=== PATIENT | male | born 1960 | race African-American/Black ===

== ENCOUNTER 2023-05-19 04:42 | Day surgery (SDC) | payer OTHER ==
[2023-05-17 11:42] VITALS: BMI 27.3
[2023-05-19 09:27] VITALS: RESP 18
[2023-05-19 11:42] VITALS: BP 132/72; PULSE 56; TEMP 98.3
== END 2023-05-19 11:10 | disposition home or self-care (01) ==
LOC: JASU-ENDO 04:42
PROVIDERS: ATTEND Internal Medicine Gastroenterology
PROC: 0DBN8ZX Excision of Sigmoid Colon, Via Natural or Artificial Opening Endoscopic, Diagnostic (ICD-10-PCS; principal; 2023-05-19 11:00)
DX: Z12.11 Encounter for screening for malignant neoplasm of colon (principal); K63.5 Polyp of colon; K64.8 Other hemorrhoids; I10 Essential (primary) hypertension
CPT/HCPCS: 88305-TC